=== PATIENT | male | born 1985 | race Caucasian/White ===

== ENCOUNTER → 2019-09-11 | Outpatient (CLI) | payer BC ==
[~2019-09-11] MED LIST: AMOX-355 PO; HYDR-3454 PO
== END ==
LOC: LAB FS 10:28
PROVIDERS: ATTEND Family Medicine
DX: Z20.828 Contact with and (suspected) exposure to other viral communicable diseases (principal)
CPT/HCPCS: 87635

== ENCOUNTER 2019-12-07 20:05 | Emergency (ER) | payer BC ==
[~2019-12-07] VITALS: Ht 193 cm; Wt 95.5 kg
[2019-12-07 20:05] VITALS: BP 143/83
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
== END 2019-12-07 20:36 | disposition home or self-care (01) ==
LOC: EDUNIT# 20:05 → ER FS 20:06
DX: T22.211A Burn of second degree of right forearm, initial encounter (principal); X58.XXXA Exposure to other specified factors, initial encounter; Y93.G3 Activity, cooking and baking; Z20.828 Contact with and (suspected) exposure to other viral communicable diseases

== ENCOUNTER → 2020-01-18 | Outpatient (CLI) | payer BC | LOC: LAB FS 10:02 | PROVIDERS: ATTEND Family Medicine | DX: U07.1 COVID-19 (principal) | CPT/HCPCS: 87635 ==

== ENCOUNTER → 2020-11-26 | Outpatient (CLI) | payer BC ==
--- NOTE | 2020-11-26 13:05 | Diagnostic Imaging Report ---
PROCEDURE: CT abdomen and pelvis without contrast. TECHNIQUE: Multiple contiguous axial images were obtained through the abdomen and pelvis without the use of intravenous contrast. Auto Exposure Controls were utilized during the CT exam to meet ALARA standards for radiation dose reduction. INDICATION: Right flank pain. COMPARISON: No prior studies are available for comparison. FINDINGS: The lung bases are clear. The liver and gallbladder are unremarkable. There is no biliary ductal dilatation. Pancreas and spleen are unremarkable. There is no adrenal mass. There is an approximately 2 mm calculus located at the right UVJ producing mild hydroureteronephrosis. No renal calculi are seen. The left ureter is unremarkable. The aorta is nonaneurysmal. Bowel loops are normal in caliber. There is no free fluid or fluid collection. Prostate is unremarkable. IMPRESSION: 2 mm right UVJ calculus producing mild hydroureteronephrosis. The study is otherwise unremarkable. Dictated by: Dictated on workstation # [id number]
== END ==
LOC: RAD FS 12:11
PROVIDERS: ATTEND Family Medicine
DX: N13.2 Hydronephrosis with renal and ureteral calculous obstruction (principal)
CPT/HCPCS: 74176